=== PATIENT | male | born 1980 | race African-American/Black ===

== ENCOUNTER 2020-03-08 08:15 | Emergency (ER) | payer SELFPAY ==
[~2020-03-08] VITALS: Ht 165.1 cm; Wt 63.9 kg
[2020-03-08 09:31] LABS: BARBITURATES NEG (NEG); BENZODIAZEPINES NEG (NEG); CANNABINOIDS NEG (NEG); COCAINE NEG (NEG); METHADONE NEG (NEG); OPIATES NEG (NEG); PHENCYCLIDINE POS (NEG)
[2020-03-08 09:39] LABS: AMPHETAMINE/METHAMPHETAMINE NEG (NEG)
--- NOTE | 2020-03-08 09:48 | RAD ---
3 view study of the right shoulder Clinical indications: Right shoulder pain. FINDINGS: No acute fracture or dislocation or lytic process is evident. No AC joint separation is seen. There is mild degenerative osteoarthritis and spurring of the right AC joint. There is mild degenerative spurring of the glenohumeral joint. There is a deformity of the posterior lateral aspect of the humeral head. This could represent an old Hill-Sachs deformity from a previous glenohumeral joint dislocation. IMPRESSION: No acute osseous abnormality. Possible Hill-Sachs deformity from an old glenohumeral joint dislocation. This was not seen on a previous radiographic study of the right shoulder dated 11/27/2009. This may be further evaluated with outpatient MRI imaging of the right shoulder. Electronically signed by: Kentrell Horn MD (03/08/2020 9:45 AM) [id number]
[2020-03-08 11:30] VITALS: BP 113/64
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
== END 2020-03-08 12:25 | disposition home or self-care (01) ==
LOC: ER 08:15
DX: M25.511 Pain in right shoulder (principal); F16.10 Hallucinogen abuse, uncomplicated; F32.9 Major depressive disorder, single episode, unspecified; F17.200 Nicotine dependence, unspecified, uncomplicated; Z98.890 Other specified postprocedural states
CPT/HCPCS: 73030; 80307; 99285